=== PATIENT | female | born 1995 | race Caucasian/White ===

== ENCOUNTER 2017-06-03 01:44 | Emergency (ER) | payer OTHER ==
[~2017-06-03] VITALS: Ht 157.5 cm; Wt 69.5 kg
[~2017-06-03 01:44] MED LIST: CIPRO500 MG PO; FLEXERIL10 MG PO; FLONASE16 G1 BOTH NARES; LORTAB 5-325 M1 EACH PO; MOTRIN600 MG PO; Motrin PO; NAPROSYN500 MG PO; NOHOMEMEDS; TESSALON PERLE100 MG PO; VENTOLIN HFA18 GM IH
[2017-06-03 02:10] LABS: HEMATOCRIT 40.9 % (36.0-46.0); HEMOGLOBIN 13.8 G/DL (11.9-15.5); MCHC 33.7 G/DL (30.0-36.0); MCV 88.9 FL (83-99); PLATELET COUNT 218 K/uL (156-360); RBC DIS.WIDTH-CV 12.1 % (11.8-14.6); RBC DIS.WIDTH-SD 39.3 % (39-53); WHITE BLOOD COUNT 10.3 K/uL (4.1-10.2)
[2017-06-03 02:20] LABS: CHLORIDE 107 mEq/L (99-109); POTASSIUM 3.8 mEq/L (3.7-5.4); SODIUM 141 mEq/L (136-147)
[2017-06-03 02:21] LABS: GLUCOSE 105 mg/dL (70-99)
[2017-06-03 02:26] LABS: CREATININE 1.1 mg/dL (0.6-1.3); GFR ESTIMATE (CALCULATED) > 59 mL/min/; UREA NITROGEN (BUN) 12 mg/dL (9-23)
[2017-06-03 04:25] LABS: APPEARANCE CLOUDY ((CLEAR)); BILIRUBIN NEGATIVE; BLOOD NEGATIVE; COLOR YELLOW ((YELLOW)); GLUCOSE (STRIP) NEGATIVE; KETONES NEGATIVE; LEUKOCYTES MODERATE; NITRITE NEGATIVE; PROTEIN (STRIP) NEGATIVE
[2017-06-03 04:43] LABS: QUANTITATIVE HCG < 4.0 MIU/ML
[2017-06-03 04:46] LABS: RED BLOOD CELLS 0-5 /HPF (0-5); WHITE BLOOD CELLS 40-50 /HPF (0-5)
[2017-06-03 04:47] LABS: BACTERIA 1+ /HPF; CALCIUM OXALATE CRYSTALS FEW /HPF; EPITHELIAL CELLS 1+ /HPF; MUCUS RARE /LPF; UCUL ADDED? YES
[2017-06-03] MEDS ORDERED: FLAGYL500 MG PO (05:38)
[2017-06-03] MEDS ORDERED: MACROBID100 MG PO (05:38)
[2017-06-03 05:46] LABS: SOURCE SWAB
[2017-06-03 06:29] VITALS: BP 107/78
== END 2017-06-03 06:30 | disposition home or self-care (01) ==
LOC: EME 01:44
PROVIDERS: Emergency Medicine
DX: N39.0 Urinary tract infection, site not specified (principal); N76.0 Acute vaginitis; B96.89 Other specified bacterial agents as the cause of diseases classified elsewhere; F90.9 Attention-deficit hyperactivity disorder, unspecified type; F17.200 Nicotine dependence, unspecified, uncomplicated
CPT/HCPCS: 80048; 81003; 84702; 85027; 87086; 87210; 87491; 87591; 99281; 99285

== ENCOUNTER 2017-07-06 18:17 | Emergency (ER) | payer OTHER ==
[~2017-07-06] VITALS: Ht 157.5 cm; Wt 66.8 kg
[~2017-07-06 18:17] MED LIST changes: +FLAGYL500 MG PO; +MACROBID100 MG PO
[2017-07-06] MEDS ORDERED: MOTRIN800 MG PO (21:28)
[2017-07-06] MEDS ORDERED: ULTRACET1 TABLET PO (21:28)
[2017-07-06 21:50] VITALS: BP 123/80
== END 2017-07-06 21:58 | disposition home or self-care (01) ==
LOC: EME 18:17
DX: S06.0X0A Concussion without loss of consciousness, initial encounter (principal); S80.02XA Contusion of left knee, initial encounter; S89.82XA Other specified injuries of left lower leg, initial encounter; V49.49XA Driver injured in collision with other motor vehicles in traffic accident, initial encounter; Y92.410 Unspecified street and highway as the place of occurrence of the external cause; F90.9 Attention-deficit hyperactivity disorder, unspecified type; F17.200 Nicotine dependence, unspecified, uncomplicated
CPT/HCPCS: 70450; 72125; 73564; 99281; 99284